=== PATIENT | male | born 1990 | race African-American/Black ===

== ENCOUNTER 2021-05-05 11:27 | Outpatient (CLI) | payer BC | END 2021-05-05 11:28 | disposition home or self-care (01) | LOC: DTY/OP 11:27 | PROVIDERS: ATTEND Surgery | DX: E66.01 Morbid (severe) obesity due to excess calories (principal) | CPT/HCPCS: 97802 ==

== ENCOUNTER 2022-11-02 16:14 | Emergency (ER) | payer BC | END 2022-11-02 17:53 | disposition home or self-care (01) | LOC: ERS 16:14 | DX: I10 Essential (primary) hypertension (principal); Z79.84 Long term (current) use of oral hypoglycemic drugs; Z79.899 Other long term (current) drug therapy | CPT/HCPCS: 71045; 93005; 94760 ==